=== PATIENT | female | born 1940 | race Caucasian/White ===

== ENCOUNTER → 2018-12-09 | Outpatient (CLI) | payer MEDICARE, BC ==
[2016-06-07 12:25] VITALS: BP 113/62
[~2018-12-09] MED LIST: ACET-704 PO; ASCO500T PO; BOSWELLIA; CALC-77 PO; CELE200C PO; CHOL10003 PO; FERR325T14 PO; HYDR-2765 PO; IBUP-1007 PO; IBUP-1027 PO; IBUP100O25 PO; LEVO125T5 PO; LEVO150T5 PO; MULT1TAB52 PO; OXYC1TAB15 PO; OXYC1TAB7 PO; POTA20TA82 PO; TRIH2TAB3 PO; TURM500C7 PO; VITA200C7 PO; WARF-78 PO; ZINC50TA2 PO
--- NOTE | 2018-12-09 13:32 | EKG ---
[facility] [address] [place] [address] Test Date: 2018-12-09 Test Time: 13:33:44 Pat Name: EYAL ORNELAS Department: Room: Gender: F Salesperson Household Appliances: TV : 1940 Requested By: RONALDO MACK Order Number: [id number] Reading MD: Felipe Jane Measurements Intervals [place] Rate: 68 P: 54 ND: 136 QRS: 35 QRSD: 76 T: 26 QT: 376 QTc: 404 Interpretive Statements SINUS RHYTHM ATRIAL PREMATURE COMPLEX(ES) OTHERWISE NORMAL ECG RI6.01 Compared to ECG 06/01/2016 14:26:46 No significant changes Electronically Signed On 12-11-2018 17:19:57 CDT by Felipe Jane
[2018-12-09 13:40] LABS: BILIRUBIN,URINE NEGATIVE (NEG); CLARITY,URINE CLOUDY; COLOR,URINE YELLOW; NITRITE,URINE NEGATIVE (NEG); PROTEIN,URINE NEGATIVE (NEG-TRACE); UROBILINOGEN,URINE 0.2 mg/dL (0.2 mg/dL)
[2018-12-09 13:57] LABS: BASO # 0.1 x10^3/uL (0.0-0.2); BASO % 1 % (0-3); EOS # 0.1 x10^3/uL (0.0-0.7); EOS % 2 % (0-3); HEMATOCRIT 40.8 % (36.0-47.0); HEMOGLOBIN 13.6 g/dL (12.0-15.5); LYMPH # 2.5 x10^3/uL (1.0-4.8); LYMPH % 34 % (24-48); MEAN CORPUSCULAR HEMOGLOBIN 30 pg (25-35); MEAN CORPUSCULAR HGB CONC 33 g/dL (31-37); MEAN CORPUSCULAR VOLUME 91 fL (79-100); MONO # 0.7 x10^3/uL (0.0-1.1); MONO % 9 % (0-9); NEUT # 4.1 x10^3uL (1.8-7.7); NEUT % 55 % (31-73); PLATELET COUNT 231 x10^3/uL (140-400); RED BLOOD COUNT 4.47 x10^6/uL (3.50-5.40); RED CELL DISTRIBUTION WIDTH 12.7 % (11.5-14.5); WHITE BLOOD COUNT 7.5 x10^3/uL (4.0-11.0)
[2018-12-09 14:13] LABS: ALBUMIN 3.6 g/dL (3.4-5.0); CALCIUM 9.4 mg/dL (8.5-10.1); GFR 53.9; POTASSIUM 4.5 mmol/L (3.5-5.1)
[2018-12-09 14:14] LABS: AMORPHOUS SEDIMENT,UR PRESENT /HPF; BACTERIA,URINE 0 /HPF (0-FEW); RBC,URINE 0 /HPF (0-2); SQUAMOUS EPITHELIAL CELL,UR FEW /LPF; WBC,URINE OCC /HPF (0-4)
--- NOTE | 2018-12-09 14:18 | NUR ---
Upon assessment, a loud heart murmur was found. Pt states that she has been told in the past that she "may" have a "slight" heart murmur. Pt has a medical clearance appointment with Gemma Kim on 12/15/18 and was instructed to bring it to her attention and to follow up to see if her PCP wants her to get further testing or a cardiac consult pre-op. Pt verbalizes understanding of the follow up with her PCP.
--- NOTE | 2018-12-09 16:54 | RAD ---
Chest, 2 views, 12/09/2018: HISTORY: Preop evaluation for knee surgery Comparison is made to a study from 06/01/2016. The heart size is normal. No pulmonary infiltrate is seen. There is no evidence of pleural fluid. Moderate scattered spurs are present in the spine. IMPRESSION: No acute cardiopulmonary abnormality is detected. Electronically signed by: Willis Blair MD (12/09/2018 4:51 PM) [facility]
== END | disposition home or self-care (01) ==
LOC: SURGPAT 12:59
PROVIDERS: ATTEND Orthopaedic Surgery
DX: Z01.818 Encounter for other preprocedural examination (principal); S86.812A Strain of other muscle(s) and tendon(s) at lower leg level, left leg, initial encounter; Z88.1 Allergy status to other antibiotic agents; Z88.8 Allergy status to other drugs, medicaments and biological substances
CPT/HCPCS: 36415; 71046; 80048; 81001; 82040; 82306; 85025; 85610; 85651; 85730; 87086; 87641; 93005

== ENCOUNTER → 2018-12-24 | Outpatient (CLI) | payer MEDICARE, BC ==
[2016-06-07 12:25] VITALS: BP 113/62
[~2018-12-24] MED LIST changes: +IODIXANOL 320 MG/ML 100 ML VIAL. ONE; +LIDOCAINE 1% Multi-Dose 20 ML VIAL. ONE; +LIDOCAINE 1% PF 2 ML VIAL. ONE; +MELO15TA6 PO
--- NOTE | 2018-12-24 11:39 | CARD ---
MR#: [id number] Date of Study: 12/24/2018 Ordering Physician: SHAWN CAMARILLO, Referring Physician: SHAWN CAMARILLO, Tech: Barbara Erwin RUST APPROVED REPORT EXAM: Two-dimensional and M-mode echocardiogram with Doppler and color Doppler. Other Information Quality : AverageHR: 58bpm Rhythm : NSR INDICATION Pre-Op 2D DIMENSIONS RVDd3.0 (2.9-3.5cm)Left Atrium(2D)3.3 (1.6-4.0cm) IVSd1.1 (0.7-1.1cm)Aortic Root(2D)2.7 (2.0-3.7cm) LVDd3.9 (3.9-5.9cm)LVOT Diameter1.7 (1.8-2.4cm) PWd0.7 (0.7-1.1cm)LVDs2.7 (2.5-4.0cm) FS (%) 32.6 %SV41.5 ml LVEF(%)61.6 (>50%) M-Mode DIMENSIONS Left Atrium(MM)3.40 (2.5-4.0cm)Aortic Root2.95 (2.2-3.7cm) Aortic Valve AoV Peak Nico.340.0cm/sAoV VTI85.6cm AO Peak GR.46.2mmHgLVOT Peak Nico.124.1cm/s AO Mean GR.28mmHg Mitral Valve MV E Ectuxvkm51.1cm/sMV DECEL EZKV675wz MV A Lcxllqxh49.2cm/sE/A Ratio0.8 Pulmonary Valve PV Peak Ghdljfwn192.4cm/s Tricuspid Valve TR P. Udbtdjwd566se/sRAP HSDKLNYT2kxFm TR Peak Gr.02ioNmBYLO97tiYh LEFT VENTRICLE The left ventricle is normal size. Proximal septal thickening is noted. The left ventricular systolic function is normal. The Ejection Fraction is 55-60%. There is normal LV segmental wall motion. Trans mitral Doppler flow pattern is Grade I-abnormal relaxation pattern. RIGHT VENTRICLE The right ventricle is normal size. There is normal right ventricular wall thickness. The right ventr icular systolic function is normal. ATRIA The left atrium size is normal. The right atrium size is normal. The interatrial septum is intact wit h no evidence for an atrial septal defect or patent foramen ovale as noted on 2-D or Doppler imaging. AORTIC VALVE The aortic valve is severely calcified. The aortic valve is probably trileaflet. Doppler and Color Fl ow revealed no significant aortic regurgitation. There is moderate valvular aortic stenosis with mean pressure gradient of 28 mmHg. MITRAL VALVE The mitral valve is normal in structure and function. There is no evidence of mitral valve prolapse. There is no mitral valve stenosis. Doppler and Color-flow revealed trace mitral regurgitation. TRICUSPID VALVE The tricuspid valve is normal in structure and function. Doppler and Color Flow revealed mild tricusp id regurgitation. There is mild pulmonary hypertension. The PA pressure was estimated at 34 mmHg. The re is no tricuspid valve prolapse or vegetation. There is no tricuspid valve stenosis. PULMONIC VALVE The pulmonic valve is not well visualized. GREAT VESSELS The aortic root is normal in size. The ascending aorta is normal in size. The IVC is normal in size a nd collapses >50% with inspiration. PERICARDIAL EFFUSION There is no evidence of significant pericardial effusion. Critical Notification Critical Value: No <Conclusion> The left ventricular systolic function is normal. The Ejection Fraction is 55-60%. There is normal LV segmental wall motion. Transmitral Doppler flow pattern is Grade I-abnormal relaxation pattern. Moderate valvular aortic stenosis with mean pressure gradient of 28 mmHg. Trace mitral regurgitation. Mild tricuspid regurgitation. The PA pressure was estimated at 34 mmHg. There is no evidence of significant pericardial effusion. Signed by : Lalo Moseley, Electronically Approved : 12/24/2018 11:39:14
== END | disposition home or self-care (01) ==
LOC: ECHO 09:28
PROVIDERS: ATTEND Internal Medicine Cardiovascular Disease
DX: I08.2 Rheumatic disorders of both aortic and tricuspid valves (principal); I27.20 Pulmonary hypertension, unspecified
CPT/HCPCS: 93306

== ENCOUNTER 2018-12-30 05:36 | Inpatient (IN) | payer MEDICARE ==
[2018-12-30] VITALS (8 sets, daily range): BP systolic 102–127; BP diastolic 60–71
[~2018-12-30] VITALS: Ht 165.1 cm; Wt 68.9 kg
[~2018-12-30 05:36] MED LIST changes: -IODIXANOL 320 MG/ML 100 ML VIAL. ONE; -LIDOCAINE 1% Multi-Dose 20 ML VIAL. ONE; -LIDOCAINE 1% PF 2 ML VIAL. ONE; -MELO15TA6 PO
[2018-12-30] MEDS ORDERED: BUPIVACAINE-EPI 0.25%-1:200000 MPF 30 ML VIAL. ONE (05:58)
[2018-12-30] MEDS ORDERED: MELOXICAM 7.5 MG TABLET PO PRN (06:00)
[2018-12-30] MEDS ORDERED: TRANEXAMIC ACID 1,000 MG in IV NS 50ML -- 1ST BAG INJ ONE (06:00)
[2018-12-30] MEDS ORDERED: ACETAMINOPHEN 500 MG TABLET PO PRN (06:00)
[2018-12-30] MEDS ORDERED: CLINDAMYCIN 900MG PREMIX 50 ML IV PRN (06:00)
[2018-12-30] MEDS ORDERED: MELO15TA6 PO (06:23)
[2018-12-30] MEDS ORDERED: ONDANSETRON PF 4 MG/2 ML VIAL. IV PRN (07:00)
[2018-12-30] MEDS ORDERED: MORPHINE SULFATE 2 MG/ML VIAL. IV PRN ×2 (07:00→13:30)
[2018-12-30] MEDS ORDERED: PROCHLORPERAZINE 10 MG/2 ML VIAL. IV PRN (07:00)
[2018-12-30] MEDS ORDERED: HYDROmorphone 2 MG/ML VIAL IV PRN (07:00)
[2018-12-30] MEDS ORDERED: IV RINGERS,LACTATED 1000ML 1,000 ML IV SCH (07:00)
[2018-12-30] MEDS ORDERED: fentaNYL PF VIAL 100 MCG/2 ML VIAL IV PRN ×4 (07:00→13:30)
[2018-12-30] MEDS ORDERED: DEXAMETHASONE SOD PHOS 4 MG/ML VIAL ONE (07:05)
[2018-12-30] MEDS ORDERED: FAMOTIDINE 20 MG/2 ML VIAL ONE (07:05)
[2018-12-30] MEDS ORDERED: LIDOCAINE 2% PF 5 ML VIAL. ONE (07:05)
[2018-12-30] MEDS ORDERED: ONDANSETRON PF 4 MG/2 ML VIAL. ONE (07:05)
[2018-12-30] MEDS ORDERED: SUCCINYLCHOLINE 200 MG/10 ML VIAL. ONE (07:05)
[2018-12-30] MEDS ORDERED: PROPOFOL 20 ML IV ONE (07:05)
[2018-12-30] MEDS ORDERED: fentaNYL PF VIAL 100 MCG/2 ML VIAL ONE ×2 (07:06→08:40)
[2018-12-30] MEDS ORDERED: MIDAZOLAM HCL/PF 2 MG/2 ML VIAL. ONE (07:06)
[2018-12-30] MEDS ORDERED: VANCOMYCIN 1 GM VIAL. ONE (07:19)
--- NOTE | 2018-12-30 07:56 | PDOC1 ---
History and Physical Date of Admission Date of Admission DATE: 12/30/18 TIME: 07:50 History of Present Illness History of Present Illness This 78-year-old woman had left total knee arthroplasty by me on 03/15/2015. The implants used were Small and Nephew Size 5 left posterior stabilized Legion nonporous femoral component, size 4 Mara II left nonporous tibial baseplate, size 3-4 13 mm Legion PS XLPE high flexion articular insert, 35 mm oval Mara II resurfacing patellar component. According to the chart she had fallen, and saw Dr. Hernandez and had left patellar tendon repair with him 12/07/15. Subsequently she came back to see me. She seemed to have a rerupture of that patellar tendon repair, and I did a revision repair with hamstring autograft and a cerclage cable on 06/05/2016. 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 Past Medical History CENTRAL NERVOUS SYSTEM: Other Musculoskeletal: Osteoarthritis Endocrine: Hypothyroidism Past Surgical History Past Surgical History: Cataract Removal, Total knee replacement Family History Family History: Heart Disease Social History ALCOHOL: none Drugs: None Current Medications Current Medications Current Medications Ondansetron HCl (Zofran) 4 mg PRN Q6HRS PRN IV NAUSEA/VOMITING; Start 12/30/18 at 07:00; Stop 12/31/18 at 06:59 Fentanyl Citrate (Fentanyl 2ml Vial) 25 mcg PRN Q5MIN PRN IV MILD PAIN 1-3; Start 12/30/18 at 07:00; Stop 12/31/18 at 06:59 Fentanyl Citrate (Fentanyl 2ml Vial) 50 mcg PRN Q5MIN PRN IV MODERATE TO SEVERE PAIN; Start 12/30/18 at 07:00; Stop 12/31/18 at 06:59 Morphine Sulfate (Morphine Sulfate) 1 mg PRN Q10MIN PRN IV SEVERE PAIN 7-10; Start 12/30/18 at 07:00; Stop 12/31/18 at 06:59 Ringer's Solution 1,000 ml @ 30 mls/hr Q24H IV Last administered on 12/30/18at 06:39; Start 12/30/18 at 07:00; Stop 12/30/18 at 18:59 Hydromorphone HCl (Dilaudid) 0.5 mg PRN Q10MIN PRN IV SEV PAIN, Second choice; Start 12/30/18 at 07:00; Stop 12/31/18 at 06:59 Prochlorperazine Edisylate (Compazine) 5 mg PACU PRN PRN IV NAUSEA, MRX1; Start 12/30/18 at 07:00; Stop 12/31/18 at 06:59 Meloxicam (Mobic) 15 mg 1X PREOP PRN PO PRIOR TO PROCEDURE; Start 12/30/18 at 06:00; Stop 12/30/18 at 18:00 Acetaminophen (Tylenol) 1,000 mg 1X PREOP PRN PO PRIOR TO PROCEDURE Last administered on 12/30/18at 06:38; Start 12/30/18 at 06:00; Stop 12/30/18 at 18:00 Clindamycin Phosphate 50 ml @ 100 mls/hr 1X PREOP PRN IV PRIOR TO PROCEDURE; Start 12/30/18 at 06:00; Stop 12/30/18 at 18:00 Tranexamic Acid 1000 mg/Sodium Chloride 60 ml @ 60 mls/hr 1X PERIOP ONCE INJ ; Start 12/30/18 at 06:00; Stop 12/30/18 at 06:59; Status DC Tranexamic Acid 1000 mg/Sodium Chloride 60 ml @ 60 mls/hr 1X PERIOP ONCE INJ ; Start 12/30/18 at 08:00; Stop 12/30/18 at 08:59 Bupivacaine HCl/ Epinephrine Bitart (Sensorcaine-Epi 0.25%-1:081840 Mpf) 30 ml STK-MED ONCE .ROUTE ; Start 12/30/18 at 05:58; Stop 12/30/18 at 06:58; Status DC Propofol 20 ml @ As Directed STK-MED ONCE IV ; Start 12/30/18 at 07:05; Stop 12/30/18 at 07:06; Status DC Dexamethasone Sodium Phosphate (Decadron) 4 mg STK-MED ONCE .ROUTE ; Start 12/30/18 at 07:05; Stop 12/30/18 at 07:06; Status DC Famotidine (Pepcid Vial) 20 mg STK-MED ONCE .ROUTE ; Start 12/30/18 at 07:05; Stop 12/30/18 at 07:06; Status DC Lidocaine HCl (Lidocaine Pf 2% Vial) 5 ml STK-MED ONCE .ROUTE ; Start 12/30/18 at 07:05; Stop 12/30/18 at 07:06; Status DC Ondansetron HCl (Zofran) 4 mg STK-MED ONCE .ROUTE ; Start 12/30/18 at 07:05; Stop 12/30/18 at 07:06; Status DC Succinylcholine Chloride (Anectine) 200 mg STK-MED ONCE .ROUTE ; Start 12/30/18 at 07:05; Stop 12/30/18 at 07:06; Status DC Fentanyl Citrate (Fentanyl 2ml Vial) 100 mcg STK-MED ONCE .ROUTE ; Start at 07:06; Stop 12/30/18 at 07:07; Status DC Midazolam HCl (Versed) 2 mg STK-MED ONCE .ROUTE ; Start 12/30/18 at 07:06; Stop 12/30/18 at 07:07; Status DC Morphine Sulfate 5 mg/Ketorolac Tromethamine 30 mg/Ropivacaine 60 ml/Epinephrine HCl 0.5 mg/Sodium Chloride 100 ml @ 100 mls/hr 1X PERIOP ONCE INT ART ; Start 12/30/18 at 09:00; Stop 12/30/18 at 09:59 Active Scripts Active Reported Mobic (Meloxicam) 15 Mg Tablet 1 Tab PO FOR PRE OP Hydrocodone-Apap 7.5-325 (Hydrocodone Bit/Acetaminophen) 1 Tab Tablet 1 Tab PO PRN Q6HRS PRN Vitamin E (Vitamin E Acetate) 200 Unit Capsule 200 Unit PO DAILY Potassium Chloride 20 Meq Tablet.er 20 Meq PO DAILY [Boswellia] Turmeric (Turmeric Root Extract) 500 Mg Capsule 500 Mg PO DAILY Vitamin D3 (Cholecalciferol (Vitamin D3)) 1,000 Unit Tablet 1 Tab PO DAILY Zinc (Zinc Gluconate) 50 Mg Tablet 50 Mg PO DAILY Vitamin C (Ascorbic Acid) 500 Mg Tab.chew 500 Mg PO DAILY Levothyroxine Sodium 125 Mcg Tablet 75 Mcg PO DAILY Trihexyphenidyl Hcl 2 Mg Tablet 2 Mg PO TID Multivitamins (Multivitamin) 1 Each Tablet 1 Each PO DAILY Calcium + D3 Er Tablet (Calcium Carb & Cit/Vitamin D3) 1 Each Tablet.er 1 Each PO TID Allergies Allergies: Coded Allergies: cephalexin (Verified Allergy, Severe, Hives, 12/30/18) ropinirole (Verified Allergy, Intermediate, Unknown, 12/30/18) Physical Exam General: Alert, Cooperative Lungs: Normal air movement Heart: other (murmur, worked up by cardiology and cleared, low risk) Abdomen: Soft Extremities: Other (knee ROM 20-100 degrees, no effusion, intact and dry incision, high riding patella, weakness of extension) Skin: No breakdown, No significant lesion Neuro: Normal speech Psych/Mental Status: Mental status NL, Mood NL Vitals Vitals Vital Signs Date Time Temp Pulse Resp B/P (MAP) Pulse Ox O2 Delivery O2 Flow Rate FiO2 12/30/18 06:19 16 97 Room Air VTE Prophylaxis Ordered VTE Prophylaxis Devices: Yes VTE Pharmacological Prophylaxi: Yes Assessment/Plan Assessment/Plan She has failure of that extensor mechanism repair previously with a high riding patella and ruptured patella tendon. The x-rays show the cable is broken, and she has metallic fragments along the polyethylene which might be impairing the extension in addition to the extensor lag from the patellar tendon rupture. I recommended revision of her extensor mechanism reconstruction, this time with allograft. I will used #5 FiberWire rather cable which hopefully will cause less mechanical problems then the cable. I recommended revision of her polyethylene component because of the metal fragments that I can see on the x-ray. I don't believe there is infection but we will take some deep cultures. I discussed with her the potential risks of surgery such as infection, ongoing extensor mechanism problems, blood clots, weakness, or other complications, and that the likelihood I cannot restore her patella to its normal height because of the chronic high riding patella. She stated understanding of the risks benefits and alternatives and desires to proceed with surgery. RONALDO MACK MD Dec 30, 2018 07:56
[2018-12-30] MEDS ORDERED: TRANEXAMIC ACID 1,000 MG in IV NS 50ML -- 2ND BAG INJ ONE (08:00)
[2018-12-30] MEDS ORDERED: ePHEDrine PF IN SALINE 50 MG/10 ML SYRINGE. IV ONE (08:04)
[2018-12-30] MEDS ORDERED: DESFLURANE > 120 MINUTES IH ONE (08:54)
[2018-12-30] MEDS ORDERED: TV=100ml MORPHINE 5 MG, KETOROLAC 30 MG, ROPIVacaine 0.5% PF 60 ML, EPINEPH... INT ART ONE ×5 (09:00)
--- NOTE | 2018-12-30 10:36 | PDOC ---
BRIEF OPERATIVE NOTE Date: Dec 30, 2018 Pre-Op Diagnosis Complications left internal knee replacement Ruptured patellar tendon, chronic Retained hardware left knee Post-Op Diagnosis Same Procedure Performed Left knee, Revision knee arthroplasty, 1 component, the polyethylene Patella tendon reconstruction with allograft Hardware removal, deeply implanted screws, washers and cables Surgeon Ester Electoral Officer Chika RESENDEZ Anesthesia Type: General Blood Loss 150 mL Specimens Obtained Left knee synovium and synovial fluid for cultures including aerobic, anaerobic, fungal, and AFB Findings Metal fragments within the joint, required polyethylene exchange Mild metallosis, 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 The tails of the hamstring autograft were docked into the tibia using an Arthrex interference screw A total of 4 sutures of #5 FiberWire were placed in the distal quadriceps tendon in a Krakw fashion, with all 8 tails crossing the joint, 4 medially and 4 laterally. These were docked into medial and lateral swivel lock anchors into the tibial tubercle. Excellent reconstruction was obtained with secure extensor mechanism. Vancomycin powder used at wound closure. Periarticular injection used ropivacaine, morphine, epinephrine and Toradol Tranexamic acid given preoperatively and after tourniquet release Tourniquet time 75 minutes No drains were used No apparent complications. Operative team used hoods. Complications None RONALDO MACK MD Dec 30, 2018 10:36
--- NOTE | 2018-12-30 13:04 | NUR ---
Received from PACU per bed, alert & drowsy, outer wrap clean, dry & intact with knee immobilizer in place, VARUN hosmarco a & SCD to RLE, JACKELINE to LLE, ivf infusing into LAC, states discomfort level 0/10, oriented to surroundings, family members at bedside, call light within reach, bed rails upx2
[2018-12-30] MEDS ORDERED: CALCIUM CARBONATE 500 MG TAB.CHEW PO PRN (13:30)
[2018-12-30] MEDS ORDERED: 0.9 % SODIUM CHLORIDE 10 ML DISP.SYRIN. IV PRN (13:30)
[2018-12-30] MEDS ORDERED: DEXTROSE 50% 25 GM / 50ML DISP.SYRIN. IV PRN (13:30)
[2018-12-30] MEDS ORDERED: ZOLPIDEM 5 MG TABLET. PO PRN (13:30)
[2018-12-30] MEDS ORDERED: PROCHLORPERAZINE 5 MG TABLET. PO PRN (13:30)
[2018-12-30] MEDS ORDERED: diphenhydrAMINE 50 MG/ML VIAL IV PRN (13:30)
[2018-12-30] MEDS ORDERED: METOCLOPRAMIDE HCL 10 MG/2 ML VIAL. IV PRN (13:30)
[2018-12-30] MEDS ORDERED: MORPHINE SULFATE 4 MG/ML VIAL. IV PRN (13:30)
[2018-12-30] MEDS ORDERED: oxyCODONE/APAP 5/325 1 TAB TABLET PO PRN ×2 (13:30→13:45)
--- NOTE | 2018-12-30 13:44 | NUR ---
Radiology here to perform knee x-ray
[2018-12-30] MEDS: CLINDAMYCIN 900MG PREMIX 50 ML IV SCH ×2 (13:46→19:54)
[2018-12-30] MEDS: HYDROcodone/APAP 7.5/325MG 1 TAB TABLET PO PRN ×2 (13:46→23:00)
[2018-12-30] MEDS: IV NORMAL SALINE 1000ML BAG 1,000 ML IV SCH (13:51)
[2018-12-30] MEDS: TRIHEXYPHENIDYL 2 MG TABLET. PO SCH ×2 (13:57→21:19)
--- NOTE | 2018-12-30 13:57 | RAD ---
Left knee, 2 views, 12/30/2018: HISTORY: Postop evaluation Comparison is made to a study from 06/05/2016. A surgical wire extending from the patella to the region of the tibial tuberosity as well as 2 screws in the proximal tibia have been removed. The lower pole of the patella is tilted anteriorly. The remainder of the knee prosthesis appears to be in satisfactory position. Numerous tiny linear opacities resembling wire fragments are projected over the knee joint region and periarticular soft tissues. Electronically signed by: Willis Blair MD (12/30/2018 1:54 PM) [facility]
--- NOTE | 2018-12-30 14:14 | PDOC4 ---
Operative Note Operative Note Date of Procedure: December 30, 2018 Pre-Op Diagnosis: 1. T84.093A Other mechanical complication of internal left knee prosthesis, initial encounter 2. M66.262 Spontaneous rupture of extensor tendons, left lower leg 3. T84.117A Breakdown, (mechanical) of internal fixation device of the left lower leg, initial encounter Post-Op Diagnosis: 1. T84.093A Other mechanical complication of internal left knee prosthesis, initial encounter 2. M66.262 Spontaneous rupture of extensor tendons, left lower leg 3. T84.117A Breakdown, (mechanical) of internal fixation device of the left lower leg, initial encounter Procedure: 1. CPT 38923 Left knee, revision of total knee arthroplasty, 1 component (polyethylene) 2. CPT 59537 suture of infrapatellar tendon secondary reconstruction including tendon graft 3. CPT 47799 removal of deep implant, buried wire, screws and washers Surgeon: Ronaldo Norman MD Exercise Instruct: Chika RESENDEZ Anesthesia: General EBL: 150 mL Specimens Obtained: Left knee synovium and synovial fluid for cultures including aerobic, anaerobic, fungal, and AFB Complications: None Drains: None Findings: Metal fragments within the joint, required polyethylene exchange Mild metallosis, 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 The tails of the hamstring autograft were docked into the tibia using an Arthrex interference screw A total of 4 sutures of #5 FiberWire were placed in the distal quadriceps tendon in a Krakw fashion, with all 8 tails crossing the joint, 4 medially and 4 laterally. These were docked into medial and lateral swivel lock anchors into the tibial tubercle. Excellent reconstruction was obtained with secure extensor mechanism. Vancomycin powder used at wound closure. Periarticular injection used ropivacaine, morphine, epinephrine and Toradol Tranexamic acid given preoperatively and after tourniquet release Tourniquet time 75 minutes No drains were used No apparent complications. Operative team used hoodchristopher. Indications for Procedure: The patient is a 78 year old with an underlying total knee arthroplasty. She had a patellar tendon rupture after a fall, soon after her prosthesis, repaired surgically by Dr. Hernandez. I saw her in follow-up a few months later, and she had displaced that fixation, and I did a revision procedure for her about 3 years ago, and used a cerclage cable for additional fixation to prevent rerupture. She has since reruptured the tendon, has broken the cable and there are now metallic fragments surrounding the polyethylene of the total knee arthroplasty. I recommended revision of the polyethylene, suture repair of the infrapatellar tendon, using a graft, and removal of the broken hardware and additional screws. The patient and I discussed the risks, benefits and alternatives of surgery. We discussed potential risks of infection, extensor lag, weakness, neurovascular injury, stiffness, weakness, blood clots, or other potential surgical or anesthetic complications. All of her questions about surgery were answered and she desired to proceed. Procedure in Detail: The patient was identified in the preoperative holding area. The correct extremity was marked by me. The patient was taken to the operating room where general anesthesia was used. The patient was positioned supine on the operating table. Preoperative antibiotics were given intravenously. Tranexamic acid was given intravenously. A timeout procedure was performed. A tourniquet was applied to the upper limb. The limb was prepared in sterile fashion with surgical prep solution. Sterile drapes were applied. The operating personnel wore the personal exhaust ventilated hoods. An Ioban drape was used such that the skin was entirely covered. An Esmarch bandage was used to exsanguinate the limb. The tourniquet was inflated to 350 mmHg. The previous midline incision was used. Sharp dissection was used. The patella was migrated superiorly. A medial parapatellar arthrotomy was performed, and the metallosis was noted. There is no evidence of infection. Synovial fluid and some of the metallosis synovium was sent for specimen. The patellar component, femoral component, and tibial component were well fixed. There was a flexion contracture of 20 degrees, and no apparent blockage by the synovium, simply she has kept the knee flexed for some time and caused contracture. There were metallic fragments embedded into the polyethylene. There was minimal if any visible wear of the femoral articulating surface. The broken cable was identified and removed. The screws and washers were removed. The polyethylene component was removed with the removal tool. [employer] interpulse general doc was used, and copious saline irrigation was used. Betadine irrigation was used. A new polyethylene was inserted 4 mm less in thickness, and she still cannot extend the knee fully although it is within five degrees of full extension and remained stable throughout the range of motion despite the decrease in thickness. A 4.5 mm drill bit was used to make a transverse bone tunnel in the patellar bone, without interfering with the cement or patellar polyethylene component. A semitendinosus allograft had been used and prepared by Chika Trinidad my FA, by whipstitching #2 FiberWire suture into the 2 free tails of the tendon graft. The graft was now advanced across that bone tunnel using a Hewson suture passer. #5 FiberWire was placed in a Krakw fashion in the distal quadriceps tendon area I placed 2 sutures medially, and 2 sutures laterally, so that there are 4 tails medially, and 4 tails laterally. These were brought down to the tibia. There were docked into the tibia using a 4.75 mm swivel lock anchors, one anchor medially with 4 tails, and 1 anchor laterally with 4 tails. Finally the hamstring graft was docked into the tibial tubercle using an 8 mm interference screw. The bone quality of the tibia and of the patella is only moderate, likely due to disuse bone atrophy. Betadine irrigation was used. Copious irrigation was used. The tourniquet was released. Tranexamic acid was redosed. Periarticular injection was used with ropivacaine, morphine, epinephrine, and Toradol. The incision was now closed in layers with #1 PDS pprgat-[id number] sutures in the medial capsulotomy. Some additional repair of the patella soft tissue and patellar retinaculum was performed with #5 FiberWire and #2 FiberWire. The subcutaneous continues tissues were closed with 0 PDS and #2-0 PDS. The incision was closed with interrupted nonabsorbable suture. Acticoat and a yahaira dressing were placed by my housing assistant property manager. A knee immobilizer was used. There were no apparent complications. Needle and sponge counts were correct. RONALDO NORMAN MD Dec 30, 2018 14:14
[2018-12-30] MEDS: CALCIUM CARB/VIT D3 500/200 TABLET. PO SCH (17:04)
[2018-12-30] MEDS: FERROUS SULFATE 325 MG TABLET. PO SCH (17:04)
[2018-12-30] MEDS: ONDANSETRON PF 4 MG/2 ML VIAL. IV SCH (17:35)
[2018-12-30] MEDS: ONDANSETRON ODT 4 MG TAB.RAPDIS. PO SCH (17:35)
--- NOTE | 2018-12-30 17:36 | NUR ---
Zofran held no nausea or vomiting
[2018-12-30] MEDS: ASPIRIN ENTERIC COATED 325 MG TABLET.DR. PO SCH (21:19)
[2018-12-31] MEDS: CLINDAMYCIN 900MG PREMIX 50 ML IV SCH (02:12)
[2018-12-31 02:30] VITALS: BP 107/62
--- NOTE | 2018-12-31 04:00 | NUR ---
pt voided 150 ml sesar colored urine,post void bladder scan showing greater than 62 ml patient denies pressure on bladder area @ this time
[2018-12-31] MEDS ORDERED: MAGNESIUM HYDROXIDE 2,400 MG/30 ML ORAL.SUSP. PO PRN (06:00)
[2018-12-31] MEDS: ONDANSETRON ODT 4 MG TAB.RAPDIS. PO SCH ×3 (06:00→11:49)
[2018-12-31] MEDS: ONDANSETRON PF 4 MG/2 ML VIAL. IV SCH ×3 (06:00→11:48)
[2018-12-31] MEDS: LEVOTHYROXINE 75 MCG TABLET PO SCH (06:07)
[2018-12-31 06:24] VITALS: BP 120/65
[2018-12-31] MEDS: MELOXICAM 7.5 MG TABLET PO SCH (09:11)
[2018-12-31] MEDS: FERROUS SULFATE 325 MG TABLET. PO SCH ×2 (09:11→17:18)
[2018-12-31] MEDS: CALCIUM CARB/VIT D3 500/200 TABLET. PO SCH ×3 (09:11→17:00)
[2018-12-31] MEDS: CHOLECALCIFEROL (VITAMIN D3) 1,000 UNIT TABLET PO SCH (09:11)
[2018-12-31] MEDS: SENNOSIDES/DOCUSATE 8.6/50MG TABLET. PO SCH (09:11)
[2018-12-31] MEDS: ASPIRIN ENTERIC COATED 325 MG TABLET.DR. PO SCH ×2 (09:11→21:11)
[2018-12-31] MEDS: ASCORBIC ACID 500 MG TABLET PO SCH (09:11)
[2018-12-31] MEDS: POTASSIUM CHLORIDE 20 MEQ TABLET.ER. PO SCH (09:11)
[2018-12-31] MEDS: MULTIVITAMIN with MINERAL TABLET. PO SCH (09:12)
[2018-12-31] MEDS: TRIHEXYPHENIDYL 2 MG TABLET. PO SCH ×3 (09:12→21:11)
[2018-12-31] MEDS: HYDROcodone/APAP 7.5/325MG 1 TAB TABLET PO PRN ×4 (09:17→21:11)
[2018-12-31 10:03] LABS: HEMOGLOBIN 12.4 g/dL (12.0-15.5)
--- NOTE | 2018-12-31 11:09 | PDOC ---
PROGRESS NOTES Subjective Subjective Pain controlled. No complaints. Using knee immobilizer as instructed. Objective Vital Signs Vital Signs Date Time Temp Pulse Resp B/P (MAP) Pulse Ox O2 Delivery O2 Flow Rate FiO2 12/31/18 09:17 Room Air 12/31/18 06:24 97.6 69 20 120/65 (83) 94 97.6 12/30/18 13:46 2.0 Physical Exam Dressing intact and dry. Thigh and calf soft. Good active range of motion of foot including dorsiflexion and plantar flexion. Cap refill at toes intact. No signs of compartment syndrome, DVT or neurovascular injury. Labs Laboratory Tests Test 12/31/18 09:00 Hemoglobin 12.4 g/dL (12.0-15.5) Hematocrit 37.0 % (36.0-47.0) Mean Corpuscular Hemoglobin Concent 33 g/dL (31-37) Laboratory Tests Test 12/31/18 09:00 Hemoglobin 12.4 g/dL (12.0-15.5) Hematocrit 37.0 % (36.0-47.0) Mean Corpuscular Hemoglobin Concent 33 g/dL (31-37) Imaging Postop X-rays reviewed by me. Patella juan alberto is much improved. Patella still has distal tip tilted anteriorly as seen intra-operatively. I tried to bring this down as much as possible with graft and suture repair, but the chronic nature of the patella malalignment made this impossible to realign to its original position. Assessment Assessment POD 1 after patella tendon reconstruction with allograft Plan Plan of Care Continue POC with PT and DVT prophylaxis. Home in 1-2 days. RONALDO MACK MD Dec 31, 2018 11:09
[2018-12-31] MEDS ORDERED: ONDANSETRON PF 4 MG/2 ML VIAL. IV PRN (12:00)
[2018-12-31] MEDS ORDERED: ONDANSETRON ODT 4 MG TAB.RAPDIS. PO PRN (12:00)
[2018-12-31] MEDS: IV NORMAL SALINE 1000ML BAG 1,000 ML IV SCH (14:00)
[2018-12-31] MEDS ORDERED: BISACODYL 10 MG SUPP.RECT. PR PRN (16:00)
[2018-12-31 17:54] VITALS: BP 124/70
--- NOTE | 2018-12-31 23:13 | NUR ---
TARI dsg changed due to large amount old bloody drainage. Vaseline gauze and foam placed over blister that incidentally popped during dsg removal. Lower medial leg bruised.
[2019-01-01] MEDS: HYDROcodone/APAP 7.5/325MG 1 TAB TABLET PO PRN ×4 (03:13→21:08)
--- NOTE | 2019-01-01 03:38 | NUR ---
States she feels as though she's voiding too frequently. Denies burning, "I don't think I drank that much water after supper."
[2019-01-01 06:30] VITALS: BP 123/69
[2019-01-01] MEDS: TRIHEXYPHENIDYL 2 MG TABLET. PO SCH ×3 (07:52→21:08)
[2019-01-01] MEDS: ASPIRIN ENTERIC COATED 325 MG TABLET.DR. PO SCH ×2 (07:52→21:08)
[2019-01-01] MEDS: FERROUS SULFATE 325 MG TABLET. PO SCH ×2 (07:52→17:00)
[2019-01-01] MEDS: POTASSIUM CHLORIDE 20 MEQ TABLET.ER. PO SCH (07:52)
[2019-01-01] MEDS: MULTIVITAMIN with MINERAL TABLET. PO SCH (07:53)
[2019-01-01] MEDS: SENNOSIDES/DOCUSATE 8.6/50MG TABLET. PO SCH (07:53)
[2019-01-01] MEDS: CALCIUM CARB/VIT D3 500/200 TABLET. PO SCH ×2 (07:53→17:00)
[2019-01-01] MEDS: MELOXICAM 7.5 MG TABLET PO SCH (07:53)
[2019-01-01] MEDS: CHOLECALCIFEROL (VITAMIN D3) 1,000 UNIT TABLET PO SCH (07:53)
[2019-01-01] MEDS: ASCORBIC ACID 500 MG TABLET PO SCH (07:53)
[2019-01-01] MEDS: LEVOTHYROXINE 75 MCG TABLET PO SCH (07:54)
[2019-01-01 08:58] LABS: HEMATOCRIT 40.4 % (36.0-47.0); HEMOGLOBIN 13.8 g/dL (12.0-15.5)
--- NOTE | 2019-01-01 13:12 | PDOC ---
PROGRESS NOTES Subjective Subjective Pain controlled. No major complaints except nauseated. Objective Vital Signs Vital Signs Date Time Temp Pulse Resp B/P (MAP) Pulse Ox O2 Delivery O2 Flow Rate FiO2 01/01/19 09:33 Room Air 01/01/19 06:30 98.8 76 20 123/69 (87) 94 98.8 12/30/18 13:46 2.0 Physical Exam TARI dressing intact but has been changed. One medial blister reported. Calf soft and nontender. Good AROM of ankle. Minimal erythema/warmth. Not yet safely ambulating with walker. Requires PT or nursing assistance, and gait belt for safe transition from chair or bed to walker. Labs Laboratory Tests Test 12/31/18 09:00 01/01/19 08:10 Hemoglobin 12.4 g/dL (12.0-15.5) 13.8 g/dL (12.0-15.5) Hematocrit 37.0 % (36.0-47.0) 40.4 % (36.0-47.0) Mean Corpuscular Hemoglobin Concent 33 g/dL (31-37) 34 g/dL (31-37) Laboratory Tests Test 01/01/19 08:10 Hemoglobin 13.8 g/dL (12.0-15.5) Hematocrit 40.4 % (36.0-47.0) Mean Corpuscular Hemoglobin Concent 34 g/dL (31-37) Assessment Assessment POD 2 after extensor mechanism reconstruction Plan Plan of Care Continue POC. Discharge planning for tomorrow. Aspirin 325 mg po BID and mobilization for DVT prophylaxis. RONALDO MACK MD Jan 01, 2019 13:12
[2019-01-01] MEDS: IV NORMAL SALINE 1000ML BAG 1,000 ML IV SCH (14:00)
[2019-01-01 17:55] VITALS: BP 123/59
[2019-01-02 06:00] VITALS: BP 139/65
[2019-01-02] MEDS: HYDROcodone/APAP 7.5/325MG 1 TAB TABLET PO PRN ×2 (06:14→10:37)
[2019-01-02] MEDS: LEVOTHYROXINE 75 MCG TABLET PO SCH (06:14)
[2019-01-02] MEDS: POTASSIUM CHLORIDE 20 MEQ TABLET.ER. PO SCH (08:00)
[2019-01-02] MEDS: CHOLECALCIFEROL (VITAMIN D3) 1,000 UNIT TABLET PO SCH (08:12)
[2019-01-02] MEDS: FERROUS SULFATE 325 MG TABLET. PO SCH (08:12)
[2019-01-02] MEDS: ASPIRIN ENTERIC COATED 325 MG TABLET.DR. PO SCH (08:12)
[2019-01-02] MEDS: MULTIVITAMIN with MINERAL TABLET. PO SCH (08:12)
[2019-01-02] MEDS: SENNOSIDES/DOCUSATE 8.6/50MG TABLET. PO SCH (08:12)
[2019-01-02] MEDS: ASCORBIC ACID 500 MG TABLET PO SCH (08:13)
[2019-01-02] MEDS: CALCIUM CARB/VIT D3 500/200 TABLET. PO SCH (08:13)
[2019-01-02] MEDS: MELOXICAM 7.5 MG TABLET PO SCH (08:13)
[2019-01-02] MEDS: TRIHEXYPHENIDYL 2 MG TABLET. PO SCH ×2 (08:13→14:50)
[2019-01-02 09:15] LABS: HEMATOCRIT 40.1 % (36.0-47.0); HEMOGLOBIN 13.7 g/dL (12.0-15.5)
--- NOTE | 2019-01-02 13:04 | PDOC ---
PROGRESS NOTES Subjective Subjective No complaints. Planning on discharge today to home. Objective Vital Signs Vital Signs Date Time Temp Pulse Resp B/P (MAP) Pulse Ox O2 Delivery O2 Flow Rate FiO2 01/02/19 10:37 Room Air 01/02/19 07:17 20 01/02/19 06:00 98.0 66 139/65 (89) 96 2.0 98.0 Physical Exam TARI intact and dry. Good AROM ankle. Calf soft and nontender. Minimal warmth or erythema. Labs Laboratory Tests Test 01/01/19 08:10 01/02/19 08:40 Hemoglobin 13.8 g/dL (12.0-15.5) 13.7 g/dL (12.0-15.5) Hematocrit 40.4 % (36.0-47.0) 40.1 % (36.0-47.0) Mean Corpuscular Hemoglobin Concent 34 g/dL (31-37) 34 g/dL (31-37) Laboratory Tests Test 01/02/19 08:40 Hemoglobin 13.7 g/dL (12.0-15.5) Hematocrit 40.1 % (36.0-47.0) Mean Corpuscular Hemoglobin Concent 34 g/dL (31-37) Assessment Assessment POD #3 Plan Plan of Care Discharge planning for today with home health. Continue PT and DVT prophylaxis. F/U 01/12/2019 9:15 a.m.. RONALDO MACK MD Jan 02, 2019 13:04
[2019-01-02] MEDS ORDERED: HYDR-2765 PO (13:07)
--- NOTE | 2019-01-02 13:11 | PDOC3 ---
Discharge Summary Visit Information Date of Admission: Dec 30, 2018 Date of Discharge: Jan 02, 2019 Final Diagnosis Problems Medical Problems: (1) High-riding patella Status: Acute (2) Retained orthopedic hardware Status: Acute Brief Hospital Course Allergies Allergies Coded Allergies Type Severity Reaction Last Updated Verified cephalexin Allergy Severe Hives 12/30/18 Yes ropinirole Allergy Intermediate Unknown 12/30/18 Yes Vital Signs Vital Signs Date Time Temp Pulse Resp B/P (MAP) Pulse Ox O2 Delivery O2 Flow Rate FiO2 01/02/19 10:37 Room Air 01/02/19 07:17 20 01/02/19 06:00 98.0 66 139/65 (89) 96 2.0 98.0 Lab Results Laboratory Tests Test 01/01/19 08:10 01/02/19 08:40 Hemoglobin 13.8 g/dL (12.0-15.5) 13.7 g/dL (12.0-15.5) Hematocrit 40.4 % (36.0-47.0) 40.1 % (36.0-47.0) Mean Corpuscular Hemoglobin Concent 34 g/dL (31-37) 34 g/dL (31-37) Laboratory Tests Test 01/02/19 08:40 Hemoglobin 13.7 g/dL (12.0-15.5) Hematocrit 40.1 % (36.0-47.0) Mean Corpuscular Hemoglobin Concent 34 g/dL (31-37) Brief Hospital Course 78 year old who presented with patella tendon rupture and retained broken hardware. The patient underwent total knee revision, and patella tendon reconstruction with allograft under general anesthesia the day of admission. Perioperative antibiotics and DVT prophylaxis were used. Postoperatively physical therapy and case management were consulted. The patient progressed and is stable for discharge. Discharge Information Condition at Discharge: Stable Follow Up: Weeks Disposition/Orders: D/C to Home w/ HH Scheduled Ascorbic Acid (Vitamin C), 500 MG PO DAILY, (Reported) Calcium Carb & Cit/Vitamin D3 (Calcium + D3 Er Tablet), 1 EACH PO TID, (Reported) Cholecalciferol (Vitamin D3) (Vitamin D3), 1 TAB PO DAILY, (Reported) Levothyroxine Sodium (Levothyroxine Sodium), 75 MCG PO DAILY, (Reported) Meloxicam (Mobic), 1 TAB PO FOR PRE OP, (Reported) Multivitamin (Multivitamins), 1 EACH PO DAILY, (Reported) Potassium Chloride (Potassium Chloride), 20 MEQ PO DAILY, (Reported) Trihexyphenidyl Hcl (Trihexyphenidyl Hcl), 2 MG PO TID, (Reported) Turmeric Root Extract (Turmeric), 500 MG PO DAILY, (Reported) Vitamin E Acetate (Vitamin E), 200 UNIT PO DAILY, (Reported) Zinc Gluconate (Zinc), 50 MG PO DAILY, (Reported) Scheduled PRN Hydrocodone Bit/Acetaminophen (Hydrocodone-Apap 7.5-325 ), 1-2 TAB PO PRN Q4HRS PRN for PAIN Miscellaneous Medications [Boswellia], (Reported) Patient Instructions Patient Instructions Patient Instructions Continue to WBAT with walker. Keep dressing dry and intact. F/U with Dr. Norman 01/12 at 9:15 a.m. Knee brace, WBAT but NO KNEE ROM. Continue DVT prophylaxis with aspirin RONALDO NORMAN MD Jan 02, 2019 13:11
--- NOTE | 2019-01-02 13:13 | SNU/HH DC ---
DISCHARGE WITH HOME HEALTH DISCHARGE INFORMATION: Final Diagnosis: Problems Medical Problems: (1) High-riding patella Status: Acute (2) Retained orthopedic hardware Status: Acute Condition on Discharge: Stable CODE STATUS: Code Status: Full HOME HEALTH: Face to Face: I certify this patient is under my care and that I, or a nurse practitioner or physician's observation assistant working with me, had a face to face encounter that meets the physician face to face encounter requirements with this patient on 01/02/2019 RN For Eval/Treatment: No Physical Therapy For: Evalulation/Treatment Occupational Therapy For: Evaluation/Treatment Pt Meets Homebound Status: Unsteady balance w/ amb,, Limited distance walking POST DISCHARGE ORDERS: Activity Instructions for Disc: Activity as tolerated, Progressive ambulation Weight Bearing Status after Di: Full weight bearing Bathing Instructions: Shower-keep dressing dry, No Tub Bath until see Wound/Incision Care: Ice to area for comfort, Keep wound/cast CDI, Keep wound elevated, Do not change dressing Other wound/incision instructi: Use knee immobilizer at all times. May WBAT in immobilizer, but no knee ROM CHECKS AFTER DISCHARGE: Comment: EC-ASA 325 mgs po BID for 30 days for DVT proph TREATMENT/EQUIPMENT ORDERS: Adaptive Equipment Issued: Front wheeled walker CERTIFICATION STATEMENT: Certification Statement: Certification Statement: Based on the above finding, I certify that this patient is confined to the home and needs intermittent chcf care, physical therapy and/or speech therapy, or continues to need occupational therapy.~ This patient is under my care, and I have initiated the establishment of the plan of care.~ This patient will be followed by myself or a community physician who will periodically review the plan of care. Home Meds Active Scripts Hydrocodone Bit/Acetaminophen (HYDROCODONE-APAP 7.5-325 ) 1 Tab Tablet, 1-2 TAB PO PRN Q4HRS PRN for PAIN for 14 Days, #60 TAB 0 Refills Prov:RONALDO MACK MD 01/02/19 Reported Medications Meloxicam (MOBIC) 15 Mg Tablet, 1 TAB PO FOR PRE OP for PAIN, #30 TAB 1 Refill 12/30/18 Vitamin E Acetate (VITAMIN E) 200 Unit Capsule, 200 UNIT PO DAILY for SUPPLEMENT , CAP 12/09/18 Potassium Chloride (POTASSIUM CHLORIDE) 20 Meq Tablet.er, 20 MEQ PO DAILY for SUPPLEMENT, TAB.SR 12/09/18 [Boswellia] No Conflict Check 12/09/18 Turmeric Root Extract (TURMERIC) 500 Mg Capsule, 500 MG PO DAILY for SUPPLEMENT 06/01/16 Cholecalciferol (Vitamin D3) (VITAMIN D3) 1,000 Unit Tablet, 1 TAB PO DAILY for SUPPLEMENT FOR LOW VITAMIN D, #30 TAB 5 Refills 06/01/16 Zinc Gluconate (ZINC) 50 Mg Tablet, 50 MG PO DAILY for SUPPLEMENT 06/01/16 Ascorbic Acid (VITAMIN C) 500 Mg Tab.chew, 500 MG PO DAILY for SUPPLEMENT, TAB.CHEW 06/01/16 Levothyroxine Sodium (LEVOTHYROXINE SODIUM) 125 Mcg Tablet, 75 MCG PO DAILY for THYROID SUPPLEMENT, #30 TAB 5 Refills 06/01/16 Trihexyphenidyl Hcl (TRIHEXYPHENIDYL HCL) 2 Mg Tablet, 2 MG PO TID for TREMORS 03/02/15 Multivitamin (MULTIVITAMINS) 1 Each Tablet, 1 EACH PO DAILY for vitamin 03/02/15 Calcium Carb & Cit/Vitamin D3 (CALCIUM + D3 ER TABLET) 1 Each Tablet.er, 1 EACH PO TID for calcium 03/02/15 RONALDO MACK MD Jan 02, 2019 13:13
[2019-01-02] MEDS ORDERED: ASPI325T11 PO (13:37)
[2019-01-02] MEDS: IV NORMAL SALINE 1000ML BAG 1,000 ML IV SCH (14:00)
[2019-01-02 15:05] VITALS: BP 122/65
--- NOTE | 2019-01-02 15:15 | NUR ---
Discharge instructions given with prescriptions. Answered questions and concerns. Verbalized understanding. Pt discharged home accompanied by granddaughter.
== END 2019-01-02 15:15 | disposition home or self-care (01) | DRG 489 ==
LOC: OPSVCIP 05:36 → 4 SOUTHEST 11:45
PROVIDERS: ADMIT Orthopaedic Surgery; ATTEND Orthopaedic Surgery
PROC: 0LUR0KZ Supplement Left Knee Tendon with Nonautologous Tissue Substitute, Open Approach (ICD-10-PCS; 2018-12-30)
PROC: 0SPD09Z Removal of Liner from Left Knee Joint, Open Approach (ICD-10-PCS; 2018-12-30)
PROC: 0SUW09Z Supplement Left Knee Joint, Tibial Surface with Liner, Open Approach (ICD-10-PCS; 2018-12-30)
PROC: 0SPD04Z Removal of Internal Fixation Device from Left Knee Joint, Open Approach (ICD-10-PCS; principal; 2018-12-30 07:10)
DX: T84.093A Other mechanical complication of internal left knee prosthesis, initial encounter (principal); T84.117A Breakdown (mechanical) of internal fixation device of bone of left lower leg, initial encounter; M66.262 Spontaneous rupture of extensor tendons, left lower leg; E03.9 Hypothyroidism, unspecified; M19.90 Unspecified osteoarthritis, unspecified site; Z98.49 Cataract extraction status, unspecified eye; Z82.49 Family history of ischemic heart disease and other diseases of the circulatory system; Z88.1 Allergy status to other antibiotic agents; Z88.8 Allergy status to other drugs, medicaments and biological substances; Y83.8 Other surgical procedures as the cause of abnormal reaction of the patient, or of later complication, without mention of misadventure at the time of the procedure; Y92.89 Other specified places as the place of occurrence of the external cause
CPT/HCPCS: 36415; 73560; 85014; 85018; 86850; 86900; 86901; 87071; 87075; 87102; 87116; A7015; C1713; J0171; J0330; J1100; J1885; J2001; J2250; J2270; J2405; J2704; J2795; J3010; J3370; J3490; J7030; J7120; 97116; 97150; 97530; 97535